=== PATIENT | male | born 1940 | race Caucasian/White ===

== ENCOUNTER 2016-11-16 12:16 | Emergency (ER) | payer OTHER ==
--- NOTE | 2016-11-16 13:11 | PROVIDER DOCUMENTATION ---
HPI-Syncope/Dizziness - General Source: patient - History of Present Illness-Syncope/Dizzy Prior Episodes: reports: no prior history Onset/Duration: reports: this morning Timing: reports: still present Position/Activity at time of episode: reports: sitting Symptoms prior to episode: reports: none Context: reports: other (dizziness) Loss of Consciousness: no loss of consciousness Location of injury. (If syncope resulted in an injury.): reports: none Current Symptoms: reports: nausea, dizzy. denies: vomiting Recently Seen Here or By Another Healthcare Provider: No <Ventura Sunshine - Last Filed: 11/16/16 16:57> <bS Bejarano - Last Filed: 11/16/16 17:22> - General Chief Complaint: Dizziness Stated Complaint: Severe Vertigo Time Seen by Provider: 11/16/16 13:00 Allergies/Adverse Reactions: Patient Allergies Allergy/AdvReac Type Severity Reaction Status Date / Time niacin Allergy Intermediate HIVES Verified 11/16/16 12:37 [From Niaspan Extended-Release] aspirin AdvReac Severe "BLEEDING Verified 11/16/16 12:37 ULCER" Home Medications: Home Medication List Medication Instructions Recorded Confirmed Last Taken Type Omeprazole [Prilosec] 20 mg PO QPM 07/04/12 11/16/16 11/15/16 20:00 History Tamsulosin [Flomax] 0.4 mg PO QPM 07/04/12 11/16/16 11/15/16 20:00 History Amlodipine Besylate [Norvasc] 10 mg PO HS #30 tablet 11/16/16 Unknown Rx Duloxetine [Cymbalta] 20 mg PO QPM 11/16/16 11/16/16 11/15/16 20:00 History Meclizine [Antivert] 12.5 mg PO TID #30 tablet 11/16/16 Unknown Rx - History of Present Illness-Syncope/Dizzy Nature of Presenting Problem: 76 y/o M presents to the ED c/o nausea and dizziness. onset this morning. patient states symptoms are worse with movement. patient noticed room spinning and being off balance to the left with a unsteady gait. denies slurred speech, facial droop and all other symptoms. no other voiced complaints. hx of HTN, GI bleed and colon polyps. (Ventura Sunshine) Review of Systems - Adult - REVIEW OF SYSTEMS - ADULT Constitutional: denies: chills, fever Eyes: denies: blurred vision, double vision Ears, Nose, Mouth & Throat: denies: ear discharge, ear pain Cardiovascular: denies: chest pain, palpitations Respiratory: denies: shortness of breath, wheezing Gastrointestinal: reports: nausea. denies: abdominal pain, diarrhea, vomiting Genitourinary: denies: dysuria, frequency Musculoskeletal: denies: bone pain, back pain Integumentary: denies: itching, rash Neurological: reports: dizziness/vertigo. denies: headache/migraines, slurred speech, syncope Psychiatric: reports: no symptoms reported Endocrine: reports: no symptoms reported Hematologic/Lymphatic: reports: no symptoms reported Allergic/Immunologic: reports: no symptoms reported All Other Systems: Reviewed and Negative <Ventura Sunshine - Last Filed: 11/16/16 16:57> Past History - Adult - PAST MEDICAL HISTORY-ADULT Review of Records: reports: Nursing Assessment Review, Medications Reviewed Major Childhood Illnesses: reports: denies history Cardiovascular: reports: denies history Respiratory: reports: denies history Gastrointestinal: reports: GI bleed, ulcer Obstetrical/Gynecological: reports: denies history Genitourinary: reports: prostate cancer (enlarged) Musculoskeletal: reports: denies history Neurological: reports: denies history Psychiatric: reports: anxiety Endocrine/Immune: reports: denies history Other Conditions: reports: denies history - PRIOR SURGERIES/PROCEDURES Surgical/Procedure History: reports: orthopedic (extremity), gastric bypass - PRIOR HOSPITALIZATIONS Prior Hospitalizations: reports: none - IMMUNIZATION STATUS Childhood Immunizations: See Nurse Assessment Flu Vaccine: See Nurse Assessment - FAMILY HISTORY Family History: reviewed, not pertinent, gallbladder disease <Ventura Sunshine - Last Filed: 11/16/16 16:57> Physical Exam-General - PHYSICAL EXAM-ADULT Initial Vital Signs Reviewed: Yes - CONSTITUTIONAL General Appearance: alert, no apparent distress, other (dizziness with sitting up, mildly slump to the left and became nauseated) - EYES Eyes: PERRL/EOMI, pink conjunctivae - HEAD, EARS, NOSE, MOUTH & THROAT HENMT: moist mucous membranes, normal ENT inspection - NECK Neck: full range of motion, normal inspection - RESPIRATORY Respiratory: lungs clear, normal breath sounds, no respiratory distress, no accessory muscle use - CARDIOVASCULAR Cardiovascular: normal peripheral pulses, regular rate, rhythm - GASTROINTESTINAL (ABDOMEN) Abdominal Exam: normal bowel sounds, non tender, soft - MUSCULOSKELETAL Extremity: normal range of motion, normal capillary refill - SKIN Integumentary: normal color, warm (moist) - NEUROLOGIC Neurologic: stake setter II-XII nml as tested, grossly normal, no motor/sensory deficits . negative: facial droop, focal weakness, motor weakness, sensory deficit - PSYCHIATRIC Psych/Mental Status: normal mood/affect, normal thought content, normal thought process, oriented x 3 <Ventura Sunshine - Last Filed: 11/16/16 16:57> Progress - EKG 2 Time of EKG reading by physician:: 16:15 EKG Read and Signed by:: Sb Bejarano EKG Interpretation (*Must complete 3 of following elements*): Normal Rate: 76 Rhythm: Normal Sinus rhythm [place]: normal QRS: normal Comments: Normal ECG - XRAY 1 XRAY: Bilateral XRAY Study: Chest Impression: Abnormal XRAY Interpretation: bilat intestrial athelutasia, possible small L infertrate by Dr. Bejarano - ULTRASOUND (By Radiology) 1 US Study: other (Carotid) Impression: See EMR Report US Results: S. Stenonis 0-39(R), % Stenosis 40-50%(L) - CONSULTS/PCP/HOSPITALIST Notification #1 *Consult/PCP/Hospitalist*: Dr. Booker Time Discussed: 15:17 Reason/Comments: Dr. Bejarano Constulted to Dr. Booker about Patient #2 Consult: Dr. Jhony Ahmadi Time Discussed: 15:26 (Dr. Bookre is aware of ther case. CT scans and wants him to have IV fluids and agreed to see him 8am in morning.) <Ventura Sunshine - Last Filed: 11/16/16 16:57> <Sb Bejarano - Last Filed: 11/16/16 17:22> - PLAN OF CARE/RESULTS Progress/Plan/Lab Results: Laboratory Tests 11/16/16 11/16/16 11/16/16 12:50 12:50 12:50 WBC 8.69 RBC 5.36 Hgb 15.4 Hct 47.7 MCV 89.0 MCH 28.7 MCHC 32.3 L RDW Std Deviation 14.0 Plt Count 276 MPV 9.8 Immature Gran % (Auto) 0.7 H Neut % (Auto) 61.6 Lymph % (Auto) 26.1 [place] % (Auto) 9.7 H Eos % (Auto) 1.4 Baso % (Auto) 0.5 Immature Gran # (Auto) 0.06 H Neut # (Auto) 5.36 Lymph # (Auto) 2.27 [place] # (Auto) 0.84 H Eos # (Auto) 0.12 Baso # (Auto) 0.04 PT 10.8 INR 1.03 PTT (Actin FS) 28.5 Sodium 138 Potassium 4.2 Chloride 99 Carbon Dioxide 24 L Anion Gap 15 BUN 17 Creatinine 0.9 Estimated GFR/1.73 m2 > 60 BUN/Creatinine Ratio 19 Glucose 141 H Calculated Osmolality 280 Calcium 8.7 L Total Bilirubin 0.58 AST 16 ALT 10 Alkaline Phosphatase 88 Creatine Kinase 81 Troponin T Total Protein 6.9 Albumin 3.9 Globulin 3.0 Albumin/Globulin Ratio 1.3 Plasma Lactate 11/16/16 11/16/16 12:50 14:34 WBC RBC Hgb Hct MCV MCH MCHC RDW Std Deviation Plt Count MPV Immature Gran % (Auto) Neut % (Auto) Lymph % (Auto) [place] % (Auto) Eos % (Auto) Baso % (Auto) Immature Gran # (Auto) Neut # (Auto) Lymph # (Auto) [place] # (Auto) Eos # (Auto) Baso # (Auto) PT INR PTT (Actin FS) Sodium Potassium Chloride Carbon Dioxide Anion Gap BUN Creatinine Estimated GFR/1.73 m2 BUN/Creatinine Ratio Glucose Calculated Osmolality Calcium Total Bilirubin AST ALT Alkaline Phosphatase Creatine Kinase Troponin T < 0.010 Total Protein Albumin Globulin Albumin/Globulin Ratio Plasma Lactate 1.0 Orders Category Date Time Status Cardiac Monitoring DIRECTED Care 11/16/16 13:51 Active Finger Stick Blood Sugar (ED) DIRECTED Care 11/16/16 13:51 Active Oxygen Therapy- ED Nursing DIRECTED Care 11/16/16 13:51 Active Saline Loc NOW Care 11/16/16 13:51 Active Vital Signs Order Q15M Care 11/16/16 13:54 Active CHEST-1 VIEW [RAD] Stat Exams 11/16/16 13:51 Draft HEAD W/O CONTRAST [CT] Stat Exams 11/16/16 12:16 Draft CBC WITH ELECTRONIC DIFF [HEME] Stat Lab 11/16/16 12:50 Completed CK PROFILE [SP CHEM] Stat Lab 11/16/16 12:50 Completed COMPREHENSIVE METABOLIC PANEL [CHEM] Stat Lab 11/16/16 12:50 Completed LACTATE, PLASMA [CHEM] Stat Lab 11/16/16 14:34 Completed PROTIME WITH INR [COAG] Stat Lab 11/16/16 12:50 Completed PTT [COAG] Stat Lab 11/16/16 12:50 Completed TROPONIN T Stat Lab 11/16/16 12:50 Completed URINALYSIS W/POSS RFLX CULT [URINALYSIS] Stat Lab 11/16/16 13:51 Uncollected URINE DRUG SCREEN Stat Lab 11/16/16 13:51 Uncollected 0.9% Sodium Chloride Inj [Ns] 1,000 ml Med 11/16/16 15:25 Active IV 999 mls/hr Ondansetron [Zofran] Med 11/16/16 13:48 Discontinued 4 mg IV NOW ONE Promethazine [Phenergan] Med 11/16/16 13:48 Discontinued 12.5 mg IV NOW ONE Sodium Chloride 0.9% Med 11/16/16 13:49 Discontinued 10 ml INJ NOW ONE Pulse Oximetry Stat Oth 11/16/16 13:51 Active Carotid Ultrasound [CV] Stat Ther 11/16/16 13:52 Completed EKG [EKG] Stat Ther 11/16/16 13:51 Ordered Vital Signs - 24 hr 11/16/16 12:47 Temperature 97.4 F L Pulse Rate 99 H Respiratory 20 Rate Blood Pressure 183/108 O2 Sat by Pulse 94 L Oximetry (Ventura Sunshine) Departure - Departure Time of Disposition Order: 15:27 Certified Medical Emergency: Emergent <Ventura Sunshine - Last Filed: 11/16/16 16:57> - Departure Time of Disposition Order: 17:19 Certified Medical Emergency: Emergent <Sb Bejarano - Last Filed: 11/16/16 17:22> - Departure DIAGNOSIS: Dizziness, Vertigo, HTN (hypertension) with goal to be determined Disposition: HOME 01 Condition: Stable Additional Instructions: ED Follow Up Instructions:TO SEE DO JHONY ON AM TOMORROW You have been treated by a care provider in the Emergency Department. These instructions are being provided to you so you can have an understanding of how to care for yourself upon discharge. Upon discharge from the Emergency Department, you are responsible for making arrangements for follow-up care by a physician of your choice. Take all prescribed medications as directed. Return to the Emergency Department immediately for any new or worsening symptoms. You may call the Physician Referral phone number at [phone] to obtain a list of Physicians who are taking new patients. Prescriptions: Meclizine [Antivert] 12.5 mg PO TID #30 tablet Amlodipine Besylate [Norvasc] 10 mg PO HS #30 tablet Referrals: Bc Booker MD [Primary Care Provider] - Instructions: Vertigo, Urac-fv-Olny, Dizziness, Fens-od-Ogum Attestation - Scribe Verification/Attestation Scribe:: Ventura Sunshine Acting as Scribe for:: Sb Bejarano Scribe documention review:: This chart was documented by a scribe and accurately reflects the service the provider performed and the decisions made by the provider. <Ventura Sunshine - Last Filed: 11/16/16 16:57> Physician Attestation - Physician Attestation I, the provider, attest to the following statement:: Sb Bejarano Physician documentation Attestation:: This documentation recorded by the scribe accurately reflects the service I personally performed and the decisions made by me. <Ventura Sunshine - Last Filed: 11/16/16 16:57>
[2016-11-16] MEDS ORDERED: PHENERGAN IV ONE (13:48)
[2016-11-16] MEDS ORDERED: ZOFRAN IV ONE (13:48)
[2016-11-16] MEDS ORDERED: SODIUM CHLORIDE 0.9% INJ ONE (13:49)
[2016-11-16 14:00] LABS: MANUAL DIFF NEEDED? NO
[2016-11-16 14:03] LABS: BASO% 0.5 % (0.0-0.8); EOS# 0.12 X1000 (0.0-0.7); EOS% 1.4 % (0.0-10.0); HEMATOCRIT 47.7 % (42.0-52.0); HEMOGLOBIN 15.4 g/dL (14.0-18.0); IMM GRAN# 0.06 X1000 (0.0-0.04); IMM GRAN% 0.7 % (0.0-0.5); LYMPH# 2.27 X1000 (1.2-3.4); LYMPH% 26.1 % (20.5-51.1); MCH 28.7 PG (27-31); MCHC 32.3 g/dL (33-37); MONO# 0.84 X1000 (0.11-0.59); MONO% 9.7 % (1.7-9.3); MPV 9.8 FL (7.4-10.4); NEUT% 61.6 % (42.2-75.2); PLT 276 X1000 (130-400); RBC 5.36 XMIL (4.7-6.1)
--- NOTE | 2016-11-16 14:08 | Diag Imaging Result Document ---
PROCEDURE NAME: HEAD W/O CONTRAST - 11/16/2016 CT OF THE HEAD WITHOUT CONTRAST: FINDINGS: There are calcifications present in the internal carotid arteries. There are patchy lucencies in the white matter of both hemispheres. This is particularly notable around the frontal horns. There are no previous studies available for comparison. The visualized paranasal sinuses are clear. There is no evidence of acute bony disease. IMPRESSION: Chronic microvascular white matter disease. No evidence of acute intracranial disease.
[2016-11-16 14:15] LABS: INR 1.03; PROTIME 10.8 Seconds (9.2-11.7); PTT 28.5 Seconds (22.0-36.0)
[2016-11-16 14:36] LABS: AGAP 15; ALBUMIN 3.9 g/dL (3.5-5.0); ALKALINE PHOSPHATASE 88 U/L (32-122); BUN 17 mg/dL (8-22); CALCIUM 8.7 mg/dL (8.8-10.2); CHLORIDE 99 mmol/L (98-107); CK PROFILE 81 U/L (24-204); COSMO 280; GOT 16 U/L (10-34); GPT 10 U/L (10-44); POTASSIUM 4.2 mmol/L (3.5-5.1); SODIUM 138 mmol/L (136-145); TCO2 24 mmol/L (25-35); TOTAL BILIRUBIN 0.58 mg/dL (0.20-1.00); TOTAL PROTEIN 6.9 g/dL (6.3-8.3)
[2016-11-16] MEDS ORDERED: NS 1,000 ML IV ONE (15:25)
--- NOTE | 2016-11-16 15:34 | Diag Imaging Result Document ---
PROCEDURE NAME: CHEST-1 VIEW - 11/16/2016 SINGLE FRONTAL RADIOGRAPH OF THE CHEST: COMPARISON: 06/22/2015. FINDINGS: Inspiration is suboptimal. There is stable elevation of the right hemidiaphragm. There is linear atelectasis at the right lung base. The lungs are grossly clear otherwise. There is no definite pleural fluid collection. Cardiac silhouette is essentially unremarkable for AP technique. IMPRESSION: Suggestion of mild linear atelectasis at the right lung base.
[2016-11-16 16:48] LABS: URINE CULTURE NEEDED? NO; URINE MICRO REVIEW NEEDED? NO; URINE SOURCE CLEAN CATCH
[2016-11-16 17:02] LABS: BILIRUBIN URINE NEGATIVE (NEGATIVE); BLOOD URINE NEGATIVE (NEGATIVE); COLOR YELLOW; GLUCOSE URINE NEGATIVE (NEGATIVE); LEUKOCYTES URINE NEGATIVE (NEGATIVE); NITRITE URINE NEGATIVE (NEGATIVE); PH URINE 6.5; PROTEIN URINE TRACE mg/dL (NEGATIVE); SP GRAVITY URINE 1.022; TURBIDITY URINE CLEAR (CLEAR); UROBILINOGEN URINE 4 mg/dL (NORMAL)
[2016-11-16 17:03] LABS: UR EPITHELIAL CELLS <10 /HPF (<10); URINE BACTERIA NEGATIVE /HPF; URINE RBC <10 /HPF (<10); URINE WBC <10 /HPF (<10)
[2016-11-16 17:10] LABS: UR AMPHETAMINES QUAL NONE DETECTED (NONE DETECT); UR BARBITUATES QUAL NONE DETECTED (NONE DETECT); UR BENZODIAZEPIN QUAL NONE DETECTED (NONE DETECT); UR CANNABINOIDS QUAL NONE DETECTED (NONE DETECT); UR COCAINE QUAL NONE DETECTED (NONE DETECT); UR METHADONE QUAL NONE DETECTED (NONE DETECT); UR OPIATES QUAL NONE DETECTED (NONE DETECT); UR OXYCODONE QUAL NONE DETECTED (NONE DETECT); UR PCP QUAL NONE DETECTED (NONE DETECT)
[2016-11-16] MEDS ORDERED: LABETALOL IV ONE (17:13)
[2016-11-16] MEDS ORDERED: ANTIVERT PO ONE (17:15)
[2016-11-16 19:29] VITALS: BP 139/80
--- NOTE | 2016-11-17 05:26 | EKG Report ---
Test Performed on : 11/16/2016 4:15:11 PM Test Reason : AMS Blood Pressure : / mmHG Vent. Rate : 076 BPM Atrial Rate : 076 BPM P-R Int : 164 ms QRS Dur : 082 ms QT Int : 412 ms P-R-T Axes : 070 016 030 degrees QTc Int : 463 ms Normal sinus rhythm. Normal ECG When compared with ECG of 22-JUN-2015 14:28, No significant change was found Unconfirmed Result
== END 2016-11-16 19:29 | disposition home or self-care (01) ==
LOC: EDBD → ED 12:16
DX: R42 Dizziness and giddiness (principal); I10 Essential (primary) hypertension; R11.0 Nausea; R26.81 Unsteadiness on feet; N40.0 Benign prostatic hyperplasia without lower urinary tract symptoms; F41.9 Anxiety disorder, unspecified; Z79.899 Other long term (current) drug therapy; Z98.84 Bariatric surgery status
CPT/HCPCS: 70450; 71010; 80053; 81001; 82550; 82948; 83605; 84484; 85025; 85610; 85730; 93005; 93880; G0480; J2405; J2550; J7030; 80324; 80345; 80346; 80349; 80353; 80358; 80361; 80365; 83992

== ENCOUNTER 2019-01-05 10:07 | Inpatient (IN) ==
--- NOTE | 2019-01-05 11:05 | PROVIDER DOCUMENTATION ---
HPI-Musculoskeletal Pain/Inj - GENERAL Chief Complaint: Extremity Pain Stated Complaint: RT KNEE PAIN Time Seen by Provider: 01/05/19 10:47 Source: patient - HX OF PRESENT ILLNESS-MUSKULOSKELTAL Nature of Presenting Problem: Patient is a 78yo M who presents w/ c/o R calf pain, swelling, and warmth x6 days. Patient reports he had a R total knee replacement on 12/27/18. Patient also reports his R ankle/foot are swollen as well. Reports he is normally constantly SOB, d/t decreased function of his R lung, however reports he has not been any more short of breath than normal. Denies CP or hx of blood clots. Reports he was sent home on coated aspirin for blood thinner post surgery. Patient reports he is concerned he might have a blood clot because he "has all of the symptoms in his booklet from the hospital." Calf pain worse with movement and palpation. Denies any fever/chills. Quality of Pain: reports: throbbing Severity in ED: moderate Onset/Duration: 6 days ago Timing: still present Modifying Factors: improves with: rest. worse with: movement, palpation Any recent injury?: No Locality of Occurance: Home Similar Symptoms Previously?: No Recently seen or treated by another doctor?: Yes (Total knee replacement 12/27/18) Review of Systems - Adult - REVIEW OF SYSTEMS - ADULT Constitutional: denies: chills, fever Eyes: reports: no symptoms reported Ears, Nose, Mouth & Throat: reports: no symptoms reported Cardiovascular: reports: edema (R calf/ankle/foot). denies: chest pain, palpitations, syncope Respiratory: reports: shortness of breath (hx of SOB, reports no worse than normal). denies: cough, wheezing Gastrointestinal: denies: nausea, vomiting Genitourinary: reports: no symptoms reported Musculoskeletal: reports: see HPI, joint pain, joint swelling Integumentary: reports: no symptoms reported Neurological: reports: no symptoms reported Psychiatric: reports: no symptoms reported Endocrine: reports: no symptoms reported All Other Systems: Reviewed and Negative Past History - Adult - PAST MEDICAL HISTORY-ADULT Review of Records: reports: Nursing Assessment Review, Medications Reviewed Major Childhood Illnesses: reports: denies history Cardiovascular: reports: denies history Respiratory: reports: denies history Gastrointestinal: reports: GI bleed, ulcer Obstetrical/Gynecological: reports: denies history Genitourinary: reports: prostate cancer (enlarged) Musculoskeletal: reports: denies history Neurological: reports: denies history Psychiatric: reports: anxiety Endocrine/Immune: reports: denies history Other Conditions: reports: denies history - PRIOR SURGERIES/PROCEDURES Surgical/Procedure History: reports: orthopedic (extremity), gastric bypass - PRIOR HOSPITALIZATIONS Prior Hospitalizations: reports: none - IMMUNIZATION STATUS Childhood Immunizations: See Nurse Assessment Flu Vaccine: See Nurse Assessment - FAMILY HISTORY Family History: reviewed, not pertinent, gallbladder disease - SOCIAL HISTORY Smoking: quit greater than 1 year Physical Exam-Injury Related - Physical Exam-Injury Related Initial Vital Signs Reviewed: Yes General Appearance: appears well, alert, no apparent distress Eyes: PERRL/EOMI, pink conjunctivae Head, Ears, Nose, Mouth & Throat: normocephalic/atraumatic, moist mucous memb ranes Neck: full range of motion, supple, normal inspection Respiratory: chest non-tender, lungs clear, normal breath sounds, no pleuratic chest pain, no respiratory distress, no accessory muscle use Cardiovascular: regular rate, rhythm, no gallop, no murmur Peripheral Pulses: dorsalis-pedis (R): 1+ (d/t edema), dorsalis-pedis (L): 2+ Back Exam: normal inspection Extremity: normal capillary refill, erythema (R midline knee around stapled surgical incision), pedal edema (R), swelling (R calf), tenderness (R calf). negative: normal range of motion (decreaesed ROM R knee d/t knee replacement), deformity Integumentary: normal color, warm (Erythema and warmth midline anterior knee around stapled surgical incision), laceration (stapled surgical incision R knee w/ no evidence of drainage) Neurologic: grossly normal Psych/Mental Status: normal mood/affect, normal thought content, normal thought process, oriented x 3 Progress - PLAN OF CARE/RESULTS Progress/Plan/Lab Results: Vital Signs - 8 hr 01/05/19 10:11 01/05/19 12:12 Temperature 97.5 F L 98 F Pulse Rate 78 74 Respiratory Rate 18 20 Blood Pressure 151/64 152/80 O2 Sat by Pulse Oximetry 96 93 L Laboratory Results - last 24 hr 01/05/19 01/05/19 01/05/19 11:10 11:10 11:10 WBC 9.16 RBC 4.55 L Hgb 11.9 L Hct 38.6 L MCV 84.8 MCH 26.2 L MCHC 30.8 L RDW Std Deviation 16.7 H Plt Count 326 MPV 9.6 Immature Gran % (Auto) 1.7 H Neut % (Auto) 65.8 Lymph % (Auto) 20.7 [place] % (Auto) 10.2 H Eos % (Auto) 1.2 Baso % (Auto) 0.4 Immature Gran # (Auto) 0.16 H Neut # (Auto) 6.02 Lymph # (Auto) 1.90 [place] # (Auto) 0.93 H Eos # (Auto) 0.11 Baso # (Auto) 0.04 PT INR PTT (Actin FS) Sodium 142 Potassium 5.0 Chloride 104 Carbon Dioxide 30 Anion Gap 8 BUN 20 Creatinine 1.0 Estimated GFR/1.73 m2 > 60 BUN/Creatinine Ratio 20 Glucose 112 H Calculated Osmolality 286 Calcium 8.5 L Total Bilirubin 0.99 AST 13 ALT 11 Alkaline Phosphatase 90 Hop-I-Iggpywkfupi Pept 102 Total Protein 6.7 Albumin 3.5 Globulin 3.2 Albumin/Globulin Ratio 1.1 01/05/19 11:10 WBC RBC Hgb Hct MCV MCH MCHC RDW Std Deviation Plt Count MPV Immature Gran % (Auto) Neut % (Auto) Lymph % (Auto) [place] % (Auto) Eos % (Auto) Baso % (Auto) Immature Gran # (Auto) Neut # (Auto) Lymph # (Auto) [place] # (Auto) Eos # (Auto) Baso # (Auto) PT 14.2 INR 1.02 PTT (Actin FS) 32.9 Sodium Potassium Chloride Carbon Dioxide Anion Gap BUN Creatinine Estimated GFR/1.73 m2 BUN/Creatinine Ratio Glucose Calculated Osmolality Calcium Total Bilirubin AST ALT Alkaline Phosphatase Zer-Z-Ireclwlvvpu Pept Total Protein Albumin Globulin Albumin/Globulin Ratio Orders Category Date Time Status Saline Loc NOW Care 01/05/19 10:[address] ANGIOGRM PULMONARY ARTERIES [CT] Stat Exams 01/05/19 13:35 Completed CBC WITH ELECTRONIC DIFF [HEME] Stat Lab 01/05/19 11:10 Completed COMPREHENSIVE METABOLIC PANEL [CHEM] Stat Lab 01/05/19 11:10 Completed PRO B-NATRIURETIC PEPTIDE Stat Lab 01/05/19 11:10 Completed PROTIME WITH INR [COAG] Stat Lab 01/05/19 11:10 Completed PTT [COAG] Stat Lab 01/05/19 11:10 Completed Enoxaparin 1 mg/kg [Lovenox 1 mg/kg] Med 01/05/19 11:48 Discontinued 1 each SUBQ NOW ONE Enoxaparin [Lovenox] Med 01/05/19 12:15 Discontinued 110 mg SUBQ NOW ONE Venous U/S Right Leg Stat Ther 01/05/19 10:59 Completed Result Diagrams: 01/05/19 11:10 01/05/19 11:10 - CT/MRI 1 CT Study: other (Pulmonary Artery) Impression: See EMR Report ([facility] [address], [address], [place] [address] Department of Imaging Patient: LEELEE GOLDSTEIN Date: 01/05/19MR#: [id number] : 1940ADM Status: REG ERAcct#: [id number] Age/Sex: 78/MRoom/Bed: Loc: ED Ordering Physician: Yanely Durán Family Physician: Bc Booker MD Reason for Procedure: DVT R calf Signed EXAM: CT ANGIOGRM PULMONARY ARTERIES INDICATION: DVT R calf TECHNIQUE: This exam was performed using automated exposure control, adjustment of mA or kV according to patient size, and/or use of iterative reconstruction technique. Thin section axial images and 3-D MIPS were obtained. COMPARISON: 04/07/2015 FINDINGS: There is no evidence of pulmonary embolism. There is extensive thoracic aortic atherosclerotic calcification. There is no evidence of aortic aneurysm or dissection. There is no cardiomegaly. There are a few calcified mediastinal and hilar lymph nodes indicating prior granulomatous d isease. There is stable elevation of the right hemidiaphragm. There is stable chronic atelectasis and/or fibrosis at the right lung base. There is minimal subsegmental atelectasis at the left lung base. There is a calcified granuloma in the right middle lobe. The lungs are grossly clear, otherwise. There is no pleural fluid collection and no pneumothorax. Limited views of the upper abdomen reveals postsurgical changes at the stomach. There is multilevel spondylosis. IMPRESSION: 1.Bibasilar subsegmental atelectasis, mainly on the right. 2.No evidence of pulmonary embolism or other definite acute chest pathology. Electronically signed by Jeferson Clemente 01/05/2019 2:31 PM 01/05/19 1431 Int erpreting Physician: Jeferson Clemente MD Dictated Date/Time: 01/05/19 1424 cc: Yanely Durán; Bc Booker MD) - ULTRASOUND (By Radiology) 1 US Study: Lower Ext (R) Impression: Abnormal (Non-mobile DVT in R Peroneal vein in calf) - CONSULTS/PCP/HOSPITALIST Notification #1 *Consult/PCP/Hospitalist*: TIAN Ngo Hospitalist Time Discussed: 14:53 Reason/Comments: DVT s/p knee replacement Consult Disposition: Admit Departure - Departure Date of Disposition Decision: 01/05/19 Time of Disposition Decision: 14:53 DIAGNOSIS: Status post right knee replacement Peroneal DVT (deep venous thrombosis) Qualifiers: Laterality: right Qualified Code(s): I82.491 - Acute embolism and thrombosis of other specified deep vein of right lower extremity Disposition: ADMITTED INPATIENT 09 Certified Medical Emergency: Emergent Condition: Stable Referrals and Follow-Ups: Bc Booker MD [Primary Care Provider] - - Critical Care Note This patient required my direct & personal management of CC.: No Attestation - Physician/ DANA Attestation Patient care was provided by Advanced Practice Provider:: Yes Advanced Practice Provider:: Yanely Durán Advanced Practice Provider documentation review:: The Mid-level provider documentation, treatment plan and medical decision making was reviewed by the physician who agrees with all treatment and medical decision making by the MLP. The physician spent face to face time with patient:: No Advanced Practice Provider documentation review:: Supervising physician onsite and consulted in the evaluation and care of this patient. The physician did not have a face to face encounter with the patient.
[2019-01-05 11:22] LABS: BASO# 0.04 X1000 (0.0-0.2); BASO% 0.4 % (0.0-0.8); EOS# 0.11 X1000 (0.0-0.7); EOS% 1.2 % (0.0-10.0); HEMATOCRIT 38.6 % (42.0-52.0); HEMOGLOBIN 11.9 g/dL (14.0-18.0); IMM GRAN# 0.16 X1000 (0.0-0.04); IMM GRAN% 1.7 % (0.0-0.5); LYMPH% 20.7 % (20.5-51.1); MCH 26.2 PG (27-31); MCHC 30.8 g/dL (33-37); MCV 84.8 FL (81-99); MONO# 0.93 X1000 (0.11-0.59); MONO% 10.2 % (1.7-9.3); MPV 9.6 FL (7.4-10.4); NEUT# 6.02 X1000 (1.4-6.5); NEUT% 65.8 % (42.2-75.2); PLT 326 X1000 (130-400); RBC 4.55 XMIL (4.7-6.1); RDW 16.7 % (11.5-14.5); WBC 9.16 X1000 (4.8-10.8)
[2019-01-05] MEDS ORDERED: LOVENOX 1 MG/KG SUBQ ONE (11:48)
[2019-01-05 11:55] LABS: AGAP 8; ALB/GLOB RATIO 1.1; ALBUMIN 3.5 g/dL (3.5-5.0); ALKALINE PHOSPHATASE 90 U/L (32-122); BUN 20 mg/dL (8-22); CALCIUM 8.5 mg/dL (8.8-10.2); CHLORIDE 104 mmol/L (98-107); COSMO 286; ESTIMATED GFR > 60; GLUCOSE 112 mg/dL (70-104); GOT 13 U/L (10-34); GPT 11 U/L (10-44); SODIUM 142 mmol/L (136-145); TCO2 30 mmol/L (25-35); TOTAL BILIRUBIN 0.99 mg/dL (0.20-1.00); TOTAL PROTEIN 6.7 g/dL (6.3-8.3)
[2019-01-05] MEDS ORDERED: LOVENOX SUBQ ONE (12:15)
[2019-01-05 12:17] LABS: INR 1.02; PROTIME 14.2 Seconds (11.0-16.0)
[2019-01-05 12:25] LABS: PTT 32.9 Seconds (22.3-41.8)
--- NOTE | 2019-01-05 14:34 | Diag Imaging Result Doc PS360 ---
EXAM: CT ANGIOGRM PULMONARY ARTERIES INDICATION: DVT R calf TECHNIQUE: This exam was performed using automated exposure control, adjustment of mA or kV according to patient size, and/or use of iterative reconstruction technique. Thin section axial images and 3-D MIPS were obtained. COMPARISON: 04/07/2015 FINDINGS: There is no evidence of pulmonary embolism. There is extensive thoracic aortic atherosclerotic calcification. There is no evidence of aortic aneurysm or dissection. There is no cardiomegaly. There are a few calcified mediastinal and hilar lymph nodes indicating prior granulomatous disease. There is stable elevation of the right hemidiaphragm. There is stable chronic atelectasis and/or fibrosis at the right lung base. There is minimal subsegmental atelectasis at the left lung base. There is a calcified granuloma in the right middle lobe. The lungs are grossly clear, otherwise. There is no pleural fluid collection and no pneumothorax. Limited views of the upper abdomen reveals postsurgical changes at the stomach. There is multilevel spondylosis. IMPRESSION: 1.Bibasilar subsegmental atelectasis, mainly on the right. 2.No evidence of pulmonary embolism or other definite acute chest pathology. Electronically signed by Jeferson Clemente 01/05/2019 2:31 PM
--- NOTE | 2019-01-05 16:24 | HISTORY AND PHYSICAL ---
HISTORY OF PRESENT ILLNESS: Mr. Umana just had knee surgery. I think he said [address] Larsen of his right knee, I think it was total knee arthroplasty, and he started noticing some swelling in his calf and hurting in his foot and ankle and concerned he had a DVT. Came into the emergency room and noninvasive studies, venous Doppler, confirmed he had a below the calf deep venous thrombosis. He has been pretty healthy. No history of diabetes or heart disease or hypertension. PAST SURGICAL HISTORY: He reports he has had a gastric bypass. I am not sure what type, whether it was Viridiana-en-Y or some other type, but he lost over 100 pounds. This about 7 or 8 years ago. ALLERGIES: Niacin. He broke out in a rash. Aspirin causes upset. FAMILY HISTORY: Said really has nothing contributory. No significant medical history in his family. SOCIAL HISTORY: Negative for alcohol, illicit drugs. REVIEW OF SYSTEMS: He did not report any weight gain or loss. No fever, chills.HEENT: Not did not report any change in visual or hearing acuity. Respiratory: No increased work of breathing or dyspnea. No pleuritic pain. Cardiovascular: No chest pain or tachy palpitation. GI/: No reported change in bowel habits or urination. Endocrinologic/Hematologic: No significant history. PHYSICAL EXAMINATION: GENERAL: Awake, alert, oriented x3. VITAL SIGNS: Temperature is 98 degrees, pulse 74, respirations 20, blood pressure 152/80. HEENT: Pupils are equal and round. LUNGS: Clear in all lung jackson. CARDIOVASCULAR: Regular rhythm and rate without murmur or S3. ABDOMEN: Soft. SKIN: Warm and dry. Weight 252 pounds. EXTREMITIES: His right knee with anterior incision and bandage. He has circumferential swelling around his calf from the knee down to the lower leg. No palpable cords. He is nontender. LABORATORY STUDIES: White count 9160, hematocrit 38, platelet count 326,000. Sodium 142, potassium 5.0, chloride 104, BUN 20, creatinine 1.0, alkaline phosphatase 90, total protein 6.7, albumin 3.5. Pro time 14.2, INR 1.02. He had a pulmonary arteriogram and had bibasilar subsegmental atelectasis, more on the right. No evidence of pulmonary embolism. No sign of acute chest pathology. ASSESSMENT AND PLAN: 1. Deep venous thrombosis in the right leg, status post knee surgery. We will put him on Lovenox 1 mg/kg subcutaneous q.12 h. Plan to keep him kind of basically in the bed. He can ambulate with some assistance, but keep him in the bed. No therapy for 48 hours and plan is to let him go home on Xarelto 20 mg a day and keep him on Xarelto for probably 3 months, most likely repeat the venous ultrasound in 3 months see where he is. 2. Nutrition looks good. He is hungry. 3. Status post right I believe it was total knee arthroplasty. I think he can restart physical therapy on Tuesday. Today is Tuesday. Review of his current medications, he is on clonazepam 1 mg at bedtime, Cymbalta 20 mg a day, Prilosec 20 mg a day, Flomax 0.4 mg q.p.m., tramadol 50 mg q.6 h. p.r.n. We will continue all those. cc: Heri Serrano MD
[2019-01-05] MEDS ORDERED: TYLENOL PO PRN (17:07)
[2019-01-05] MEDS ORDERED: ZOFRAN IV PRN (17:07)
[2019-01-05] MEDS ORDERED: KLONOPIN PO SCH (21:00)
[2019-01-05] MEDS: CYMBALTA PO SCH (22:24)
[2019-01-05] MEDS: LOVENOX SUBQ SCH (22:24)
[2019-01-05] MEDS: FLOMAX PO SCH (22:24)
[2019-01-05] MEDS: PRILOSEC PO SCH (22:24)
[2019-01-06] MEDS ORDERED: LOVENOX 1 MG/KG SUBQ ONE (00:01)
[2019-01-06] MEDS: LOVENOX SUBQ SCH ×2 (01:14→11:29)
[2019-01-06] MEDS: ULTRAM PO PRN (03:26)
[2019-01-06 06:47] LABS: BASO# 0.06 X1000 (0.0-0.2); BASO% 0.8 % (0.0-0.8); EOS# 0.09 X1000 (0.0-0.7); EOS% 1.1 % (0.0-10.0); HEMATOCRIT 36.5 % (42.0-52.0); HEMOGLOBIN 11.4 g/dL (14.0-18.0); IMM GRAN# 0.14 X1000 (0.0-0.04); IMM GRAN% 1.8 % (0.0-0.5); LYMPH# 2.04 X1000 (1.2-3.4); LYMPH% 25.6 % (20.5-51.1); MCH 26.5 PG (27-31); MCHC 31.2 g/dL (33-37); MCV 84.9 FL (81-99); MONO# 0.69 X1000 (0.11-0.59); MONO% 8.6 % (1.7-9.3); MPV 9.9 FL (7.4-10.4); NEUT# 4.96 X1000 (1.4-6.5); NEUT% 62.1 % (42.2-75.2); PLT 319 X1000 (130-400); RDW 16.4 % (11.5-14.5); WBC 7.98 X1000 (4.8-10.8)
[2019-01-06 07:11] LABS: AGAP 7; BUN 16 mg/dL (8-22); CALCIUM 8.4 mg/dL (8.8-10.2); CHLORIDE 102 mmol/L (98-107); COSMO 277; CREATININE 0.8 mg/dL (0.7-1.2); ESTIMATED GFR > 60; GLUCOSE 105 mg/dL (70-104); POTASSIUM 4.3 mmol/L (3.5-5.1); SODIUM 138 mmol/L (136-145); TCO2 29 mmol/L (25-35)
--- NOTE | 2019-01-06 08:20 | Extremity Venous Study ---
PROCEDURE NAME: Venous U/S Right Leg - 01/05/2019 PROCEDURE: Right lower extremity venous study. REQUESTING PHYSICIAN: Dr. Durán in the Emergency Department. ASSISTANT ATHLETIC TRAINER: William. INDICATIONS: 1. Edema and pain. 2. Ten days status post right total knee. EQUIPMENT: [employer] E 9 ultrasound system with a 9 L-D transducer. FINDINGS: Image of the right lower extremity venous system, comparison shot to the left common femoral vein were obtained in both sagittal and transverse planes. Doppler was used to evaluate veins for spontaneity, phasicity, respiratory excursion, and digital augmentation. RESULTS: There appears to be a DVT noted in the peroneal vein on the right side, but otherwise normal venous compression, normal venous flow. INTERPRETATION: Peroneal vein DVT noted on the right side. Per the emergency room technician's note, a verbal report was given to Dr. Durán at 11:45 p.m. cc: Jaron Borja MD
--- NOTE | 2019-01-06 10:38 | PROGRESS NOTE ---
DATE: 01/06/2019 SUBJECTIVE: He had uneventful night. Feels like his right leg is a little less swollen, a little less irritated. I pulled the cover over his anterior incision. He has recently had total knee arthroplasty per Dr. Roman, and that area looks good to me. I do not see any sign of infection or drainage. The calf swelling on that right leg is diminished. OBJECTIVE: Vital Signs: Temperature 97.6 degrees, pulse 90, respirations 20, blood pressure 148/69. Eyes: Pupils are equal and round. Lungs: Clear in all lung jackson. Cardiovascular exam: Regular rhythm and rate without murmur or S3. Abdomen: Soft. Skin: Warm and dry. : Urine output is 1400 mL. ASSESSMENT AND PLAN: 1. Deep venous thrombosis, right leg. He is on Lovenox 1 mg/kg subcutaneously every 12 hours. I will keep him basically bed bound for another 24 hours. Hopefully, he can go home on Tuesday. Put him on Xarelto 20 mg a day. 2. Status post total knee arthroplasty in the right knee, doing well. Incision looks good. We will take off the covering tomorrow. cc: Heri Serrano MD
[2019-01-06] MEDS: KLONOPIN PO PRN ×2 (16:28→21:23)
[2019-01-06] MEDS: CYMBALTA PO SCH (21:23)
[2019-01-06] MEDS: FLOMAX PO SCH (21:23)
[2019-01-06] MEDS: PRILOSEC PO SCH (21:23)
[2019-01-07] MEDS: LOVENOX SUBQ SCH ×3 (00:21→23:46)
[2019-01-07] MEDS ORDERED: MILK OF MAGNESIA PO PRN (12:57)
--- NOTE | 2019-01-07 13:29 | PROGRESS NOTE ---
DATE: 01/07/2019 SUBJECTIVE: Mr. Umana can tell the swelling is down in his right leg. He is feeling better. He has eaten pretty good, according to his report. Bowels are moving but he has not had a bowel movement in a couple of days, so he is asking and I will give him some milk of magnesia. OBJECTIVE: Temperature 98.0 degrees, pulse 90, respirations 16, blood pressure 105/57. Pupils are equal and round. Lungs are clear in all lung jackson. Cardiovascular Examination: Regular rhythm and rate without murmur or S3. Abdomen is soft. Skin is warm and dry. Urine output 1800 mL. ASSESSMENT AND PLAN: Deep venous thrombosis of the right leg. Continue Lovenox 1 mg/kg every 12 hours. He will been in the hospital over 48 hours. We will put him on Xarelto and let him go home tomorrow. I think he can resume his therapy, he had status post total knee arthroplasty of the right knee, take his anterior bandage off. The wound looks clean and dry. Continue present measures. cc: Heri Serrano MD
[2019-01-07] MEDS: ULTRAM PO PRN (17:29)
[2019-01-07] MEDS: PRILOSEC PO SCH (21:11)
[2019-01-07] MEDS: CYMBALTA PO SCH (21:11)
[2019-01-07] MEDS: FLOMAX PO SCH (21:11)
[2019-01-08] MEDS: ULTRAM PO PRN (04:09)
[2019-01-08 07:33] VITALS: BP 143/63
--- NOTE | 2019-01-08 09:20 | PROGRESS NOTE ---
DATE: 01/08/2019 Mr. Umana had a good night. His swelling has gone down in his leg. His anterior incision of his knee looks good. He is ready to go home. Came in with a DVT on 01/05/2019. He just had knee surgery in the right knee with total knee arthroplasty about [address] Roman and then noticed some swelling in his right leg. Noninvasive venous studies revealed DVT. This was done on 01/05/2019. DVT in the peroneal vein in the right side but otherwise normal venous compression. Put him on Lovenox 1 mg/kg subcutaneous q.12. We elevated his right leg and kept him pretty much at bedrest. He can go back to physical therapy. I am going to put him on Xarelto 20 mg a day, keep him on Xarelto for probably will need at least 3 months. Recommendation is that he get a noninvasive checked again at the end of 3 months to see where he is. DISCHARGE MEDICATIONS: His discharge medications will be aspirin 325 mg. He was taking it twice a day. We will go down to just 81 mg a day on the aspirin. Zyrtec 10 mg a day, Klonopin 1 mg t.i.d. p.r.n., B12 at 1000 mcg a day, Cymbalta 20 mg q.p.m., Prilosec 20 mg a day, oxycodone 7.5 mg q.4-6 hours p.r.n., Flomax 0.4 mg a day, and he was getting tramadol 5 mg q.6 hours p.r.n. Put him on the Xarelto at 20 mg daily for I recommend at least 3 months and then follow up with a venous study. cc: Heri Serrano MD
--- NOTE | 2019-01-22 15:36 | DISCHARGE SUMMARY ---
ADMISSION DATE: 01/05/2019 DISCHARGE DATE: 01/08/2019 HISTORY OF PRESENT ILLNESS: A patient of Dr. Bc Booker. He just had knee surgery about [address] Roman of his right knee, had a total knee arthroplasty. Started noticing some swelling in the calf and hurting in the foot and ankle. Concerned about DVT. Came to the emergency room where confirmed a deep venous thrombosis. PAST SURGICAL HISTORY: He has had gastric bypass, not sure what type it was, whether it was a Viridiana-en-Y or some other type. He lost about 100 pounds. This was about 8 years ago. ALLERGIES: Niacin. HOSPITAL COURSE: Put him on some Lovenox, fractionated heparin 1 mg/kg q.12. He basically is bedrest. His swelling did go down. He did feel a little better. No sign of pulmonary thromboembolus. We let him go home on Xarelto on 01/08/2019. CT angiogram, bibasilar subsegmental atelectasis but no evidence of pulmonary embolus so he was discharged home. Aspirin 325 mg a day was cut down to just 81 mg, Zyrtec 10 mg a day, Klonopin 1 mg t.i.d. p.r.n., B12 1000 mg a day, Cymbalta 20 mg q.p.m., Prilosec 20 mg a day, oxycodone 7.5 mg q.4-6 hours p.r.n., Flomax 0.4 mg a day, tramadol 5 mg q.6 hours p.r.n., and then put him on Xarelto 20 mg for at least 3 months. He is to get followup venous ultrasound per his primary care physician at the end of 3 months and continue his physical therapy. cc: Heri Serrano MD
== END 2019-01-08 11:30 | disposition home or self-care (01) | DRG 300 ==
LOC: ED 10:07 → 4N 16:48
PROVIDERS: ATTEND Emergency Medicine
CPT/HCPCS: 71275; 80048; 80053; 83880; 85025; 85610; 85730; 93971; 99285; A9270; J1650; Q9967